=== PATIENT | male | born 1970 | race Hispanic/Latino ===

== ENCOUNTER 2023-10-12 03:00 | Emergency (ER) | payer SELFPAY ==
[~2023-10-12] VITALS: Ht 165.1 cm; Wt 80.0 kg
[2023-10-12] VITALS (7 sets, daily range): BP systolic 110–137; BP diastolic 51–76
[2023-10-12] MEDS ORDERED: METFORMIN HCL1000 MG PO (03:19)
[2023-10-12] MEDS ORDERED: SODIUM CHLORIDE 0.9% 1,000 ML IV ONE ×2 (03:20→05:00)
[2023-10-12] MEDS ORDERED: IBUPROFEN 600 MG/TAB PO ONE (03:20)
[2023-10-12] MEDS ORDERED: MAXZIDE-25MG1 COMBO PO (03:21)
[2023-10-12] MEDS ORDERED: LISINOPRIL2.5 MG PO (03:22)
[2023-10-12] MEDS ORDERED: LANTUS100 UNIT SC (03:22)
[2023-10-12] MEDS ORDERED: AMLODIPINE BESY10 MG PO (03:24)
[2023-10-12 03:42] LABS: BASO% 0.2 % (0-3); EOS% 0.1 % (0-8); HEMATOCRIT 38.3 % (39.0-50.0); HEMOGLOBIN 14.4 g/dl (14.0-18.0); IMMATURE GRANULOCYTES 0.2 % (0.0-5.0); LYMPH% 5.1 % (15-41); MEAN CELL VOLUME 88.5 fL CALC (80.0-100.0); MEAN CORPUSCULAR HGB 33.3 pG CALC (26.0-32.0); MEAN CORPUSCULAR HGB CONC 37.6 g/dL CAL (32.0-36.0); MONO% 4.1 % (2-13); NEUT# 10.37 thou/uL (1.82-7.42); NEUT% 90.3 % (42-76); RED BLOOD COUNT 4.33 mill/uL (4.70-6.10); RED CELL DISTRI WIDTH 11.3 % (11.5-15.5)
[2023-10-12 03:58] LABS: ALBUMIN 3.8 g/dL (3.2-5.0); BILIRUBIN, TOTAL 1.3 mg/dL (0.2-1.3); CREATININE 0.7 mg/dL (0.7-1.3); POTASSIUM 3.8 mmol/l (3.5-5.1); TOTAL PROTEIN 7.7 g/dL (6.3-8.2)
[2023-10-12 04:04] LABS: URINE BILIRUBIN - DIPSTICK Negative (NEGATIVE); URINE COLOR Yellow; URINE GLUCOSE - DIPSTICK 250 mg/dL (NEGATIVE)
[2023-10-12 04:05] LABS: URINE KETONE 15 mg/dL (NEGATIVE); URINE NITRITE - DIPSTICK Negative (Negative); URINE PROTEIN - DIPSTICK Trace mg/dL (NEG-TRACE); URINE SPECIFIC GRAVITY 1.005; URINE UROBILINOGEN - DIPSTICK 0.2 E.U./dL (0.2)
[2023-10-12 04:07] LABS: URINE BACTERIA MANY hpf; URINE BLOOD DIPSTICK Small (NEGATIVE); URINE LEUK ESTERASE Moderate (NEGATIVE); URINE MUCUS FEW hpf (NONE-FEW); URINE SQUAMOUS EPITHELIAL CELL FEW EPI/hpf (0-FEW); URINE WBC 50-100 WBC/hpf (0-5)
[2023-10-12] MEDS ORDERED: BACTRIM DS1 TAB PO (04:59)
[2023-10-14] MEDS ORDERED: CIPROFLOXACN500 MG PO (11:42)
== END 2023-10-12 05:08 | disposition home or self-care (01) | DRG 690 ==
LOC: ED 03:00
PROVIDERS: Family Medicine
DX: N39.0 Urinary tract infection, site not specified (principal); E87.1 Hypo-osmolality and hyponatremia; E11.65 Type 2 diabetes mellitus with hyperglycemia; I10 Essential (primary) hypertension; Z79.84 Long term (current) use of oral hypoglycemic drugs; Z79.4 Long term (current) use of insulin; Z20.822 Contact with and (suspected) exposure to COVID-19